=== PATIENT | female | born 1970 | race Caucasian/White ===

== ENCOUNTER → 2018-08-31 | Outpatient (CLI) | payer BC ==
[~2018-08-31] MED LIST: CLINORIL PO; DILTIAZEM ER120 MG; FLAGYL250 MG PO; LEVAQUIN500 MG PO; LEVOTHYROXINE25 MCG; LISINOPRIL10 MG PO; TYLENOL # 31 EA PO
== END ==
LOC: MAMMO 09:21
PROVIDERS: ATTEND Internal Medicine
DX: Z12.31 Encounter for screening mammogram for malignant neoplasm of breast (principal)
CPT/HCPCS: 77067

== ENCOUNTER 2022-12-06 17:21 | Inpatient (IN) | payer BC ==
[~2022-12-06] VITALS: Ht 154.9 cm; Wt 86.2 kg
[~2022-12-06 17:21] MED LIST changes: -DILTIAZEM ER120 MG; +DILTIAZEM ER120 MG PO; -LEVOTHYROXINE25 MCG; +LEVOTHYROXINE25 MCG PO
[2022-12-06] MEDS ORDERED: ONDANSETRON HCL INJ 2MG/ML 2ML 2 MG/ML VIAL IV STA (17:54)
[2022-12-06] MEDS ORDERED: SODIUM CHLORIDE 0.9% 1000ML 1,000 ML IV STA (17:54)
[2022-12-06] MEDS ORDERED: DICYCLOMINE HCL 20 MG/2 ML VIAL IM ONE (18:00)
[2022-12-06 18:25] LABS: BASOPHILS # (AUTO) 0.1 (0.0-0.1); BASOPHILS % 0.5 % (0.0-1.0); EOSINOPHILS # (AUTO) 0.1 (0.0-0.4); EOSINOPHILS % 0.5 % (0.0-6.0); HEMOGLOBIN 15.5 g/dL (12.0-16.0); LYMPHOCYTES # (AUTO) 2.8 (1.0-3.2); LYMPHOCYTES % 16.7 % (18.0-39.1); MEAN CORPUSCULAR HEMOGLOBIN 28.5 pg (28-32); MEAN CORPUSCULAR HGB CONC 33.7 g/dL (31-35); MEAN CORPUSCULAR VOLUME 84.6 fL (81-99); MONOCYTES # (AUTO) 1.1 (0.2-0.8); MONOCYTES % 6.4 % (4.4-11.3); NEUTROPHILS # (AUTO) 12.4 (2.1-6.9); NEUTROPHILS % 75.4 % (38.7-80.0); PLATELET COUNT 354 x10e3/uL (140-360); RED BLOOD COUNT 5.44 x10e6/uL (3.6-5.1); RED CELL DISTRIBUTION WIDTH 13.2 % (11.7-14.4)
[2022-12-06 18:50] LABS: ALANINE AMINOTRANSFERASE 13 IU/L (0-55); ALKALINE PHOSPHATASE 100 IU/L (40-150); ANION GAP 22.1 mmol/L (8-16); BLOOD UREA NITROGEN 7 mg/dL (7-26); BUN/CREATININE RATIO 11 (6-25); CALCIUM 9.5 mg/dL (8.4-10.2); CARBON DIOXIDE 19 mmol/L (22-29); CHLORIDE 99 mmol/L (98-107); CREATINE KINASE 114 IU/L (29-168); CREATININE, SERUM 0.65 mg/dL (0.57-1.11); GLUCOSE 97 mg/dL (74-118); LIPASE 63 U/L (8-78); POTASSIUM 4.1 mmol/L (3.5-5.1); SODIUM 136 mmol/L (136-145)
[2022-12-06] MEDS ORDERED: IOPAMIDOL 370 MG/ML 100 ML INFUS..BTL INJ ONE (18:56)
[2022-12-06] MEDS ORDERED: Morphine 4mg INJECTION 4 MG/ML INJ IV PRN ×2 (19:15→20:00)
[2022-12-06 19:59] LABS: CLARITY,URINE CLEAR (CLEAR); COLOR,URINE YELLOW (YELLOW); KETONES,URINE 2+ (NEGATIVE); LEUKOCYTE ESTERASE ,URINE NEGATIVE (NEGATIVE); NITRITE,URINE NEGATIVE (NEGATIVE); PROTEIN,URINE DIPSTICK NEGATIVE (NEGATIVE)
[2022-12-06 20:00] LABS: URINE UROBILINOGEN 0.2 mg/dL (0.2 - 1)
[2022-12-06] MEDS ORDERED: ONDANSETRON HCL INJ 2MG/ML 2ML 2 MG/ML VIAL IV PRN (20:00)
[2022-12-06 20:14] LABS: BACTERIA,URINE FEW /HPF; EPITHELIAL CELLS,URINE FEW /LPF; RBC,URINE 0-5 /HPF (0-5); WBC,URINE (MAN) 0-5 /HPF (0-5)
[2022-12-06] MEDS: SODIUM CHLORIDE 0.9% 1000ML 1,000 ML IV SCH ×2 (21:06→23:21)
[2022-12-06 22:12] VITALS: BP 128/57
[2022-12-06] MEDS ORDERED: PROZAC10 MG PO (22:18)
[2022-12-06] MEDS ORDERED: MULTI-VITAMIN1 EACH PO (22:24)
[2022-12-06 22:25] VITALS: BP 128/57
[2022-12-06 22:26] VITALS: BP 128/57
[2022-12-07] VITALS (7 sets, daily range): BP systolic 111–133; BP diastolic 51–70
[2022-12-07] MEDS ORDERED: POTASSIUM CHLORIDE 20 MEQ TAB CR PO PRN (01:00)
[2022-12-07] MEDS ORDERED: MELATONIN 5 MG TABLET PO PRN (01:00)
[2022-12-07] MEDS ORDERED: ALBUTEROL/IPRATROPIUM 3 ML NEB NEB PRN (01:00)
[2022-12-07] MEDS ORDERED: DIPHENHYDRAMINE HCL 25 MG CAP PO PRN (01:00)
[2022-12-07] MEDS ORDERED: DOCUSATE SODIUM 100 MG CAP PO PRN (01:00)
[2022-12-07] MEDS ORDERED: TRAMADOL HCL 50 MG TAB PO PRN (01:00)
[2022-12-07] MEDS ORDERED: LIDOCAINE 4% PATCH TP PRN (01:00)
[2022-12-07] MEDS ORDERED: HYDRALAZINE HCL 20 MG/ML VIAL IV PRN (01:00)
[2022-12-07] MEDS ORDERED: BENZONATATE 100 MG CAP PO PRN (01:00)
[2022-12-07] MEDS ORDERED: ACETAMINOPHEN 325 MG TAB PO PRN (01:00)
[2022-12-07] MEDS ORDERED: SIMETHICONE 80 MG CHEW PO PRN (01:00)
[2022-12-07] MEDS ORDERED: ONDANSETRON HCL INJ 2MG/ML 2ML 2 MG/ML VIAL IV PRN (01:00)
[2022-12-07] MEDS ORDERED: DEXTROSE 50% SYRINGE 50 ML IV PRN (01:00)
[2022-12-07 07:12] LABS: BASOPHILS % 0.3 % (0.0-1.0); EOSINOPHILS # (AUTO) 0.2 (0.0-0.4); EOSINOPHILS % 1.4 % (0.0-6.0); HEMOGLOBIN 12.3 g/dL (12.0-16.0); LYMPHOCYTES # (AUTO) 2.1 (1.0-3.2); LYMPHOCYTES % 17.6 % (18.0-39.1); MEAN CORPUSCULAR HEMOGLOBIN 28.4 pg (28-32); MEAN CORPUSCULAR HGB CONC 33.2 g/dL (31-35); MEAN CORPUSCULAR VOLUME 85.5 fL (81-99); MONOCYTES # (AUTO) 0.8 (0.2-0.8); MONOCYTES % 6.6 % (4.4-11.3); NEUTROPHILS # (AUTO) 8.6 (2.1-6.9); NEUTROPHILS % 73.6 % (38.7-80.0); PLATELET COUNT 223 x10e3/uL (140-360); RED BLOOD COUNT 4.33 x10e6/uL (3.6-5.1); RED CELL DISTRIBUTION WIDTH 13.4 % (11.7-14.4)
[2022-12-07] MEDS ORDERED: PANTOPRAZOLE SOD 40 MG TABEC PO SCH (07:30)
[2022-12-07] MEDS: SODIUM CHLORIDE 0.9% 1000ML 1,000 ML IV SCH ×2 (07:55→23:08)
[2022-12-07] MEDS ORDERED: MELOXICAM15 MG PO (08:20)
[2022-12-07] MEDS ORDERED: TRULANCE3 MG PO (08:20)
[2022-12-07] MEDS ORDERED: PROMETHAZINE HC25 M1 PO (08:20)
[2022-12-07] MEDS ORDERED: METOCLOPRAMIDE H5 MG PO (08:20)
[2022-12-07] MEDS ORDERED: PANTOPRAZOLE SO40 MG PO (08:20)
[2022-12-07] MEDS ORDERED: SUCRALFATE1 GM PO (08:20)
[2022-12-07 08:52] LABS: ANION GAP 10.2 mmol/L (8-16); CALCIUM 8.3 mg/dL (8.4-10.2); CHOL/HDL RATIO 3.9 (3.0-3.6); CREATININE, SERUM 0.55 mg/dL (0.57-1.11); PHOSPHORUS 2.9 MG/DL (2.3-4.7)
[2022-12-07 08:55] LABS: POTASSIUM 3.2 mmol/L (3.5-5.1)
[2022-12-07 09:12] LABS: THYROID STIMULATING HORMONE 0.785 uIU/mL (0.350-4.940)
[2022-12-07] MEDS: METOCLOPRAMIDE HCL 10 MG/2ML VIAL IV SCH ×2 (16:44→23:15)
[2022-12-07] MEDS: ENOXAPARIN SOD INJ 40 MG/0.4 ML SYR SC SCH (16:45)
[2022-12-07] MEDS: LEVOFLOXACIN 500MG/D5W 100ML 100 ML IV SCH (16:57)
[2022-12-08] VITALS (8 sets, daily range): BP systolic 113–136; BP diastolic 58–75
[2022-12-08] MEDS: SODIUM CHLORIDE 0.9% 1000ML 1,000 ML IV SCH ×4 (00:10→20:51)
[2022-12-08] MEDS: METOCLOPRAMIDE HCL 10 MG/2ML VIAL IV SCH ×4 (05:46→23:22)
[2022-12-08] MEDS: CHLORDIAZEPOXIDE/CLIDINIUM 1 CAP PO SCH ×4 (09:18→20:51)
[2022-12-08] MEDS: ENOXAPARIN SOD INJ 40 MG/0.4 ML SYR SC SCH (16:57)
[2022-12-08] MEDS: SUCRALFATE 1 GM TAB PO SCH (16:57)
[2022-12-08] MEDS: LEVOFLOXACIN 500MG/D5W 100ML 100 ML IV SCH (16:58)
[2022-12-08] MEDS ORDERED: METOCLOPRAMIDE HCL 10 MG TAB PO SCH (17:00)
[2022-12-09] VITALS: BP 133/72
[2022-12-09] MEDS: SODIUM CHLORIDE 0.9% 1000ML 1,000 ML IV SCH ×2 (02:11→08:40)
[2022-12-09 04:00] VITALS: BP 136/75
[2022-12-09] MEDS: METOCLOPRAMIDE HCL 10 MG/2ML VIAL IV SCH (05:43)
[2022-12-09 05:59] LABS: BASOPHILS # (AUTO) 0.1 (0.0-0.1); BASOPHILS % 0.7 % (0.0-1.0); EOSINOPHILS # (AUTO) 0.2 (0.0-0.4); HEMATOCRIT 36.5 % (34.2-44.1); HEMOGLOBIN 11.7 g/dL (12.0-16.0); LYMPHOCYTES # (AUTO) 2.3 (1.0-3.2); LYMPHOCYTES % 24.7 % (18.0-39.1); MEAN CORPUSCULAR HEMOGLOBIN 28.4 pg (28-32); MEAN CORPUSCULAR HGB CONC 32.1 g/dL (31-35); MEAN CORPUSCULAR VOLUME 88.6 fL (81-99); MONOCYTES # (AUTO) 0.6 (0.2-0.8); NEUTROPHILS # (AUTO) 6.2 (2.1-6.9); NEUTROPHILS % 66.2 % (38.7-80.0); PLATELET COUNT 214 x10e3/uL (140-360); RED BLOOD COUNT 4.12 x10e6/uL (3.6-5.1); RED CELL DISTRIBUTION WIDTH 13.3 % (11.7-14.4)
[2022-12-09] MEDS ORDERED: LEVOTHYROXINE SODIUM 25 MCG TABLET PO SCH (06:00)
[2022-12-09 06:47] LABS: ALANINE AMINOTRANSFERASE 10 IU/L (0-55); ALBUMIN/GLOBULIN RATIO 1.1 (0.8-2.0); ALKALINE PHOSPHATASE 76 IU/L (40-150); ANION GAP 10.5 mmol/L (8-16); BLOOD UREA NITROGEN < 5 mg/dL (7-26); CALCIUM 8.5 mg/dL (8.4-10.2); CARBON DIOXIDE 24 mmol/L (22-29); CHLORIDE 109 mmol/L (98-107); CREATININE, SERUM 0.63 mg/dL (0.57-1.11); GLUCOSE 86 mg/dL (74-118); POTASSIUM 3.5 mmol/L (3.5-5.1); SODIUM 140 mmol/L (136-145)
[2022-12-09 07:01] LABS: BUN/CREATININE RATIO 8 (6-25)
[2022-12-09] MEDS: CHLORDIAZEPOXIDE/CLIDINIUM 1 CAP PO SCH ×2 (07:30→11:30)
[2022-12-09 08:55] VITALS: BP 135/82
[2022-12-09] MEDS ORDERED: FLUOXETINE HCL 10 MG CAP PO SCH (09:00)
[2022-12-09] MEDS ORDERED: DILTIAZEM HCL CR 120MG TAB PO SCH (09:00)
[2022-12-09 09:33] VITALS: BP 135/82
[2022-12-09 09:48] VITALS: BP 135/82
[2022-12-09] MEDS: SUCRALFATE 1 GM TAB PO SCH (10:51)
[2022-12-09] MEDS ORDERED: DILTIAZEM HCL ER 120 MG CAP PO SCH (11:30)
[2022-12-09 12:51] VITALS: BP 140/77
== END 2022-12-09 14:08 | disposition home or self-care (01) | DRG 641 ==
LOC: ER 17:32 → INTOOBSV 19:49 → ERHOLD 19:49 → MED/SURG 21:25 → OBSVTOIN 12-09 08:49
PROVIDERS: ADMIT Internal Medicine; ATTEND Internal Medicine
DX: E86.0 Dehydration (principal); R11.2 Nausea with vomiting, unspecified; Z98.84 Bariatric surgery status; I10 Essential (primary) hypertension; E03.9 Hypothyroidism, unspecified; E66.9 Obesity, unspecified; Z68.35 Body mass index [BMI] 35.0-35.9, adult; I48.91 Unspecified atrial fibrillation; Z90.49 Acquired absence of other specified parts of digestive tract; Z88.0 Allergy status to penicillin
CPT/HCPCS: 36415; 36569; 71045; 74177; 74240; 80053; 80061; 81001; 82550; 82553; 83036; 83690; 83735; 84100; 84443; 84484; 85025; 93005; 94799; 96361; 99284; G0378; J1650; J1956; J2270; J2405; J2765; J7030; Q9967